=== PATIENT | male | born 1990 | race Caucasian/White ===

== ENCOUNTER 2018-02-09 22:21 | Emergency (ER) | payer BC, MEDICAID ==
--- NOTE | 2018-02-09 22:38 | EDPHY ---
H & P Stated Complaint: Fell off skateboard, knee pain. Time Seen by Provider: 02/09/18 22:32 HPI/ROS: Chief Complaint: Knee injury HPI: 28-year-old male sustained an inversion injury to his right knee when he fell off of his skateboard earlier tonight. He has a history of prior ligamentous injuries in the past but has never followed up with orthopedist. Denies any swelling. Patient states at baseline he is not really able to bend his knee much. He did put on his old knee brace. He did take 600 mg of ibuprofen earlier. Denies any redness or swelling. Denies any other injuries at this time. ROS: 10 point Review of Systems is negative except as noted in the HPI. PMH: Knee injury Social History: Positive smoking, positive alcohol, no recreational drug use Family History: non-contributory Physical Exam: General: Awake, alert, no acute distress Right leg: Right hip full range of motion without pain Right knee: No swelling or erythema. He is able to bend to 45. No anterior drawer sign. No medial or lateral collateral ligament tenderness. Patient does have a click with extension suggesting meniscal injury. No bony tenderness. Skin: No rash - Personal History Current Tetanus/Diphtheria Vaccine: Unsure Current Tetanus Diphtheria and Acellular Pertussis (TDAP): Unsure - Medical/Surgical History Hx Asthma: No Hx Chronic Respiratory Disease: No Hx Diabetes: No Hx Cardiac Disease: No Hx Renal Disease: No Hx Cirrhosis: No Hx Alcoholism: No Hx HIV/AIDS: No Hx Splenectomy or Spleen Trauma: No Other PMH: Denies - Social History Smoking Status: Current some day smoker Constitutional: Initial Vital Signs Temperature (C) 37.2 C 02/09/18 22:27 Heart Rate 109 H 02/09/18 22:27 Respiratory Rate 16 02/09/18 22:27 Blood Pressure 138/81 H 02/09/18 22:27 O2 Sat (%) 95 02/09/18 22:27 O2 Delivery Mode Room Air Allergies/Adverse Reactions: No Known Allergies Allergy (Unverified 02/09/18 22:30) Home Medications: Medication Instructions Recorded NK [No Known Home Meds] 02/09/18 Medical Decision Making - Diagnostics Imaging Results: Imaging Impressions Knee X-Ray 02/09/18 22:37 Impression: Normal right knee series. Imaging: I viewed and interpreted images myself ED Course/Re-evaluation: 28-year-old with right knee sprain. No fracture on x-ray. He has a knee immobilizer. Will discharge with follow up with Orthopedics. Departure - Departure Disposition: Home, Routine, Self-Care Clinical Impression: Knee sprain Condition: Good Instructions: Knee Sprain (ED) Additional Instructions: Follow up with Orthopedics in 4-5 days for further evaluation. Alternate acetaminophen (1000 mg) with ibuprofen (400 mg) every 4 hours as needed for pain. Referrals: Matt Wallace MD [Medical Doctor] - As per Instructions
[2018-02-10 00:15] VITALS: BP 131/64
== END 2018-02-10 00:13 | disposition home or self-care (01) ==
DX: S83.91XA Sprain of unspecified site of right knee, initial encounter (principal); F17.200 Nicotine dependence, unspecified, uncomplicated; V00.131A Fall from skateboard, initial encounter; Y99.8 Other external cause status; Y93.51 Activity, roller skating (inline) and skateboarding